=== PATIENT | female | born 1995 | race Caucasian/White ===

== ENCOUNTER 2018-05-08 18:46 | Emergency (ER) | payer MEDICAID, OTHER ==
[~2018-05-08] VITALS: Ht 170.2 cm; Wt 138.8 kg
[~2018-05-08 18:46] MED LIST: ACET-7142 PO; CYCL7.5T21 PO; NAPR-1003 PO; [UNRECOGNIZED DRUG - CODE] TP
[2018-05-08 18:53] VITALS: BP 134/74
--- NOTE | 2018-05-08 18:58 | NUR ---
C/O NEAR SYNCOPAL TODAY WITH DIZZINESS, REPORTS DONATING WHOLE BLOOD TODAY AND STATES SHE FEELS WEAK. SHE HAS DONATED BEFORE. SKIN W/D/I. RESP EVEN AND UNLABORED. VSS
--- NOTE | 2018-05-08 19:10 | NUR ---
REPORT GIVEN TO PHILLIP RODRÍGUEZ
--- NOTE | 2018-05-08 19:12 | NUR ---
PATIENT RESTING AT THIS TIME. NO SIGNS OF DISTRESS.
[2018-05-08] MEDS ORDERED: NACL 0.9% 1,500 ML IV ONE (19:55)
[2018-05-08 20:51] LABS: BASOPHILS % (AUTO) 0.5 % (0.0-2.0); EOSINOPHILS # (AUTO) 0.2 K/uL (0-0.4); EOSINOPHILS % (AUTO) 1.7 % (0.0-4.0); HEMATOCRIT 39.1 % (36-48); HEMOGLOBIN 13.1 g/dL (12.0-16.0); LYMPHOCYTES # (AUTO) 1.1 K/uL (2.5-16.5); LYMPHOCYTES % (AUTO) 12.5 % (20.5-51.1); MEAN CORPUSCULAR HEMOGLOBIN 28 pg (27-31); MEAN CORPUSCULAR HGB CONC 34 g/dL (33-37); MONOCYTES # (AUTO) 0.7 K/uL (0.8-1.0); MONOCYTES % (AUTO) 8.3 % (1.7-9.3); NEUTROPHILS # (AUTO) 6.9 K/uL (1.8-7.7); PLATELET COUNT (AUTO) 325 K/uL (140-450); RED BLOOD CELL COUNT(AUTO) 4.65 MIL/uL (4.20-5.40)
[2018-05-08 21:00] LABS: ANION GAP 11.3 (8-16); CARBON DIOXIDE 26.2 mmol/L (21-32); POTASSIUM 3.5 mmol/L (3.5-5.1)
[2018-05-08 21:06] LABS: ALBUMIN 3.7 g/dL (3.4-5.0); TOTAL BILIRUBIN 0.5 mg/dL (0.0-1.0)
--- NOTE | 2018-05-08 21:15 | NUR ---
PATIENT RESTING AT THIS TIME. NO SIGNS OF DISTRESS.
[2018-05-08 22:25] VITALS: BP 115/55
--- NOTE | 2018-05-08 22:25 | NUR ---
Patient discharged with v/s stable. Written and verbal after care instructions given and explained. Patient verbalized understanding. Ambulatory with steady gait. All questions addressed prior to discharge. Advised to follow up with PMD.
== END 2018-05-08 22:25 | disposition home or self-care (01) ==
LOC: MED 18:46
DX: R55 Syncope and collapse (principal); R11.0 Nausea; J45.909 Unspecified asthma, uncomplicated; Z88.0 Allergy status to penicillin
CPT/HCPCS: 36415; 80053; 85025; 96360; 96361; 99285; J7030; 93005

== ENCOUNTER 2022-07-17 01:48 | Emergency (ER) | payer BC, OTHER ==
[~2022-07-17] VITALS: Ht 167.6 cm; Wt 127.9 kg
[2022-07-17 01:52] VITALS: BP 123/79
--- NOTE | 2022-07-17 02:11 | NUR ---
Patient taken to bed 5.
--- NOTE | 2022-07-17 02:36 | NUR ---
27/F BIB SELF C/C ABD PAIN X6PM LAST NIGHT. PAIN IS 7/10 AND SHARP. +NAUSEA DENIES V/C/D/FEVER/CHILLS. PER PATIENT "I FELT LIKE GAS PAIN SO I TOOK GAS X WITH NO RELIEF." PATIETN ALSO TOOK "NAUSEA MEDICATION " AT HOME FROM . PATIENT APPEARS TO BE GUARDING ABD. BS ACTIVE X4Q. LMP 03/2022 PM[facility]X PCOS ALLERGIES PCN
--- NOTE | 2022-07-17 04:01 | NUR ---
Dr. Quiros examining patient.
[2022-07-17] MEDS ORDERED: ONDA8TAB87 PO (04:19)
[2022-07-17] MEDS ORDERED: IBUP-2213 PO (04:19)
[2022-07-17 04:23] VITALS: BP 120/79
--- NOTE | 2022-07-17 04:23 | NUR ---
Chart checked and completed.
--- NOTE | 2022-07-17 04:23 | NUR ---
Patient discharged with v/s stable. Written and verbal after care instructions given and explained. Patient alert, oriented and verbalized understanding of instructions. Ambulatory with steady gait. All questions addressed prior to discharge. ID band removed. Patient advised to follow up with PMD. Rx of ZOFRAN, IBUPROFEN given.
== END 2022-07-17 04:23 | disposition home or self-care (01) ==
LOC: MED 01:48
DX: R10.13 Epigastric pain (principal); R11.0 Nausea; J45.909 Unspecified asthma, uncomplicated; Z79.899 Other long term (current) drug therapy; Z88.0 Allergy status to penicillin; Z98.84 Bariatric surgery status
CPT/HCPCS: 81002; 81025; 99283